=== PATIENT | male | born 1980 | race Caucasian/White ===

== ENCOUNTER 2020-09-13 09:31 | Inpatient (IN) ==
[2020-09-13] MEDS ORDERED: ONDANSETRON 4 MG/2 ML VIAL IV STA ×3 (09:40→13:10)
[2020-09-13] MEDS ORDERED: SODIUM CHLORIDE 0.9% 2,000 ML IV STA (09:47)
[2020-09-13] MEDS ORDERED: HYDROmorphone 2 MG/1 ML VIAL IV STA ×2 (09:47→13:09)
[2020-09-13] MEDS ORDERED: ONDANSETRON 4 MG/2 ML VIAL ONE (09:47)
[2020-09-13] MEDS ORDERED: HYDROmorphone 2 MG/1 ML VIAL ONE (09:47)
[2020-09-13] MEDS ORDERED: PANTOPRAZOLE 40 MG VIAL IV STA (09:47)
[2020-09-13 10:00] LABS: Basophils % 0.2 % (0.0-0.8); Eosinophils # 0.1 10*3/uL (0.0-0.87); Eosinophils % 0.3 % (0.00-10.9); Hematocrit 50.8 VOL% (42.0-52.0); Hemoglobin 17.7 GM/DL (14.0-18.0); Immature Granulocytes % 0.5 %; Immature Granulocytes Absolute 0.08 #; Lymphocytes # 1.8 10*3/uL (1.4-4.0); Mean Corpuscular HGB Conc 34.8 GM/DL (32-36); Mean Corpuscular Volume 90.1 FL (87-102); Mean Platelet Volume 8.8 FL (9.6-12.0); Monocytes % 6.3 % (1.7-12.7); Neutrophils % 80.7 % (38.7-73.9); Platelet Count 357 T/CUMM (130-400); Red Blood Count 5.64 MC/CUMM (3.8-5.5); Red Cell Distribution Width 13.2 % (9.3-17.3); White Blood Count 15.2 T/CUMM (4-12)
[2020-09-13 10:54] LABS: Albumin 4.8 G/DL (3.4-5.0); Calcium 10.2 MG/DL (8.5-10.1); Total Protein 8.5 G/DL (6.4-8.2)
[2020-09-13] MEDS ORDERED: SODIUM CHLORIDE 0.9% 1,000 ML IV STA (11:36)
[2020-09-13] MEDS ORDERED: ACETAMINOPHEN 325 MG TABLET PO PRN (13:34)
[2020-09-13] MEDS ORDERED: ONDANSETRON 4 MG/2 ML VIAL IV PRN (13:34)
[2020-09-13] MEDS: HYDROmorphone 2 MG/1 ML VIAL IV PRN ×2 (15:47→20:08)
[2020-09-13] MEDS: DEXTROSE 5% LACTATED RINGERS 1,000 ML IV SCH ×2 (16:28→23:39)
[2020-09-13] MEDS ORDERED: HYDROmorphone 2 MG/1 ML VIAL IV PRN (20:34)
[2020-09-13] MEDS: ONDANSETRON 4 MG/2 ML VIAL IV PRN (21:23)
[2020-09-14] MEDS: HYDROmorphone 2 MG/1 ML VIAL IV PRN ×4 (00:49→08:30)
[2020-09-14] MEDS: ONDANSETRON 4 MG/2 ML VIAL IV PRN ×3 (03:47→12:13)
[2020-09-14 05:25] LABS: Basophils % 0.4 % (0.0-0.8); Eosinophils # 0.1 10*3/uL (0.0-0.87); Hematocrit 48.2 VOL% (42.0-52.0); Immature Granulocytes % 0.3 %; Immature Granulocytes Absolute 0.03 #; Lymphocytes % 8.8 % (21.2-54.2); Mean Corpuscular HGB Conc 33.2 GM/DL (32-36); Mean Platelet Volume 8.8 FL (9.6-12.0); Monocytes % 11.4 % (1.7-12.7); Neutrophils % 78.1 % (38.7-73.9); Platelet Count 299 T/CUMM (130-400); Red Blood Count 5.13 MC/CUMM (3.8-5.5); Red Cell Distribution Width 13.4 % (9.3-17.3); White Blood Count 11.2 T/CUMM (4-12)
[2020-09-14 05:47] LABS: Calcium 8.8 MG/DL (8.5-10.1); Osmolality,Calculated 274.7 MOS/KG (273-304); Potassium 3.9 MMOL/L (3.5-5.1)
[2020-09-14 05:50] LABS: Band Neutrophils 4 % (0-10); Lymphocytes 4 % (20-55); Platelet Estimate Adequate; Segmented Neutrophils 84 % (50-85); Total Cells Counted 100
[2020-09-14] MEDS: DEXTROSE 5% LACTATED RINGERS 1,000 ML IV SCH (06:37)
[2020-09-14] MEDS ORDERED: LACTATED RINGERS 1,000 ML IV ONE (08:13)
[2020-09-14] MEDS ORDERED: NALOXONE 0.4 MG/ML VIAL IV PRN (08:46)
[2020-09-14] MEDS ORDERED: PANTOPRAZOLE 40 MG TABLET PO SCH (09:00)
[2020-09-14] MEDS: HYDROmorphone PCA 30 MG/30 ML SYRINGE IV SCH (09:48)
[2020-09-14] MEDS: ENOXAPARIN 40 MG/0.4 ML SYRINGE SUBCUT SCH (10:47)
[2020-09-14] MEDS: FINASTERIDE 5 MG TABLET PO SCH (10:48)
[2020-09-14] MEDS: CITALOPRAM 40 MG TABLET PO SCH (10:48)
[2020-09-14] MEDS: PANTOPRAZOLE 40 MG VIAL IV SCH (12:12)
[2020-09-14] MEDS ORDERED: propofoL 200 MG/20 ML VIAL IV ONE (12:19)
[2020-09-14] MEDS ORDERED: SEVOFLURANE 1 UNIT/15 MINUTE INH ONE (12:19)
[2020-09-14] MEDS ORDERED: ONDANSETRON 4 MG/2 ML VIAL ONE ×2 (12:19→14:38)
[2020-09-14] MEDS ORDERED: ROCURONIUM 50 MG/5 ML VIAL IV ONE (12:19)
[2020-09-14] MEDS ORDERED: LIDOCAINE 2% 5 ML VIAL ONE (12:19)
[2020-09-14] MEDS ORDERED: MIDAZOLAM 2 MG/2 ML VIAL ONE (12:19)
[2020-09-14] MEDS ORDERED: fentaNYL 100 MCG/2 ML VIAL ONE (12:20)
[2020-09-14] MEDS ORDERED: DEXAMETHASONE 4 MG/1 ML VIAL ONE ×2 (12:56→14:38)
[2020-09-14] MEDS ORDERED: LIDOCAINE 1% 5 ML VIAL ONE (12:56)
[2020-09-14] MEDS ORDERED: EPINEPHrine 1 MG/ML VIAL ONE (12:57)
[2020-09-14] MEDS ORDERED: ROPIVACAINE 0.5% 30 ML VIAL ONE (12:57)
[2020-09-14] MEDS ORDERED: BUPIVACAINE MPF 0.25% 30 ML VIAL ONE (12:57)
[2020-09-14 14:12] LABS: Bilirubin,Urine Negative (Negative); Blood, Urine Negative (Negative); Glucose,Urine (UA) Negative (Negative); Hyaline Casts,Urine 1 /LPF (0-3); Ketones,Urine Negative (Negative); Mucus,Urine Occasional /LPF (Occasional); Nitrite,Urine Negative (Negative); Protein,Urine Negative; RBC,Urine 2 /HPF (0-4); Urine Appearance CLEAR (Clear); Urine Color Yellow (Yellow); Urine Specific Gravity 1.023 (1.001-1.035); Urine Urobilinogen < 2.0 EU/DL (0.2-1.0)
[2020-09-14] MEDS ORDERED: TISSUE ADHESIVE 1 EACH APPLICATOR TOP ONE (14:20)
[2020-09-14] MEDS ORDERED: DESFLURANE 1 UNIT/15 MINUTE INH ONE (14:38)
[2020-09-14] MEDS ORDERED: LACTATED RINGERS 2,000 ML IV ONE (14:38)
[2020-09-14] MEDS ORDERED: HYDROmorphone 2 MG/1 ML VIAL ONE (14:48)
[2020-09-14] MEDS ORDERED: HYDROmorphone 2 MG/1 ML VIAL IV PRN (14:55)
[2020-09-14] MEDS ORDERED: ONDANSETRON 4 MG/2 ML VIAL IV PRN (14:55)
[2020-09-14 14:57] LABS: Bilirubin,Urine Negative (Negative); Blood, Urine Negative (Negative); Glucose,Urine (UA) Negative (Negative); Hyaline Casts,Urine 1 /LPF (0-3); Ketones,Urine Negative (Negative); Mucus,Urine Moderate /LPF (Occasional); Nitrite,Urine Negative (Negative); Protein,Urine 30 MG/DL; RBC,Urine 1 /HPF (0-4); Squamous Epithelial Cell,Urine Occasional /HPF (0-10); Urine Appearance CLEAR (Clear); Urine Color Yellow (Yellow); Urine Specific Gravity 1.027 (1.001-1.035); Urine Urobilinogen < 2.0 EU/DL (0.2-1.0)
[2020-09-15] MEDS: DEXTROSE 5% LACTATED RINGERS 1,000 ML IV SCH ×4 (02:00→22:11)
[2020-09-15 05:50] LABS: Osmolality,Calculated 274.7 MOS/KG (273-304); Potassium 3.9 MMOL/L (3.5-5.1)
[2020-09-15 06:05] LABS: Basophils % 0.1 % (0.0-0.8); Eosinophils % 0.1 % (0.00-10.9); Hematocrit 40.3 VOL% (42.0-52.0); Immature Granulocytes % 0.3 %; Immature Granulocytes Absolute 0.02 #; Lymphocytes # 1.1 10*3/uL (1.4-4.0); Lymphocytes % 13.9 % (21.2-54.2); Mean Corpuscular HGB Conc 33.5 GM/DL (32-36); Mean Corpuscular Volume 93.1 FL (87-102); Mean Platelet Volume 9.3 FL (9.6-12.0); Monocytes % 10.7 % (1.7-12.7); Neutrophils % 74.9 % (38.7-73.9); Platelet Count 272 T/CUMM (130-400); Red Blood Count 4.33 MC/CUMM (3.8-5.5)
[2020-09-15 06:15] LABS: Hemoglobin 13.5 GM/DL (14.0-18.0); White Blood Count 7.7 T/CUMM (4-12)
[2020-09-15 06:25] LABS: Hypochromasia Slight; Lymphocytes 13 % (20-55); Platelet Estimate Adequate; Segmented Neutrophils 78 % (50-85); Total Cells Counted 100
[2020-09-15 06:26] LABS: Microcytosis Slight
[2020-09-15] MEDS: FINASTERIDE 5 MG TABLET PO SCH (09:28)
[2020-09-15] MEDS: CITALOPRAM 40 MG TABLET PO SCH (09:28)
[2020-09-15] MEDS: PANTOPRAZOLE 40 MG VIAL IV SCH (09:28)
[2020-09-15] MEDS: ENOXAPARIN 40 MG/0.4 ML SYRINGE SUBCUT SCH (09:29)
[2020-09-15] MEDS: HYDROmorphone PCA 30 MG/30 ML SYRINGE IV SCH (10:50)
[2020-09-15] MEDS ORDERED: HYDROmorphone 2 MG/1 ML VIAL IV PRN ×2 (12:55)
[2020-09-15] MEDS ORDERED: traZODone 50 MG TABLET PO PRN (17:58)
[2020-09-16] MEDS: DEXTROSE 5% LACTATED RINGERS 1,000 ML IV SCH (05:56)
[2020-09-16] MEDS: CITALOPRAM 40 MG TABLET PO SCH (08:42)
[2020-09-16] MEDS: FINASTERIDE 5 MG TABLET PO SCH (08:42)
[2020-09-16] MEDS ORDERED: PANTOPRAZOLE 40 MG TABLET PO SCH (09:00)
[2020-09-16] MEDS: ENOXAPARIN 40 MG/0.4 ML SYRINGE SUBCUT SCH (09:27)
[2020-09-16 16:37] VITALS: BP 102/59
== END 2020-09-16 18:48 | disposition home or self-care (01) | DRG 336 ==
LOC: N.ED 09:31 → N.EDINP 13:34 → N.3E 14:41
PROVIDERS: ADMIT Surgery; ATTEND Surgery